=== PATIENT | male | born 1970 | race Caucasian/White ===

== ENCOUNTER 2017-05-16 09:15 | Emergency (ER) | payer OTHER ==
[2017-05-16 09:32] VITALS: BP 130/84
--- NOTE | 2017-05-16 10:20 | UC ---
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--- - History of Current Complaint Chief Complaint: [facility]CS[facility] Time Seen by Provider: 05/16/17 10:14 Stated Complaint: RASH Hx Obtained From: Patient Onset/Duration: Gradual Onset, Lasting Days, Still Present Timing: Constant Onset Severity: Moderate Current Severity: Moderate Location: Diffuse - as described Character: Pruritus, Redness Aggravating: Nothing Alleviating: Nothing Associated Signs & Symptoms: Positive: Rash - Allergy/Home Medications Allergies/Adverse Reactions: Allergies Allergy/AdvReac Type Severity Reaction Status Date / Time Penicillins Allergy Rash Verified 05/16/17 09:26 Review of Systems Constitutional: Negative Skin: Rash - itchy red no relief with cortisone Eyes: Negative ENT: Negative Respiratory: Negative Cardiovascular: Negative Gastrointestinal: Negative Genitourinary: Negative Motor: Negative Neurovascular: Negative Musculoskeletal: Negative Neurological: Negative Psychological: Negative All Other Systems Reviewed And Are Negative: Yes PMH/Surg Hx/FS Hx/Imm Hx Previously Healthy: No Endocrine History: Diabetes, Dyslipidemia Psychological History: Depression - Surgical History Surgical History: None - Family History Known Family History: Positive: None, Cardiac Disease - [place], Hypertension, Diabetes - Social History Occupation: Employed Full-time Lives: With Family Alcohol Use: Rare Substance Use Type: None Smoking Status (MU): Former Smoker Type: Cigarettes Length of Time of Smoking/Using Tobacco: "few years" Physical Exam Triage Information Reviewed: Yes Appearance: Well-Appearing, No Pain Distress, Well-Nourished Vital Signs: Initial Vital Signs Temp 97.3 F 05/16/17 09:27 Pulse 97 05/16/17 09:27 Resp 16 05/16/17 09:27 BP 130/84 05/16/17 09:27 Pulse Ox 99 05/16/17 09:27 Vital Signs Reviewed: Yes Eye Exam: Normal Eyes: Positive: Conjunctiva Clear ENT Exam: Normal ENT: Positive: Normal ENT inspection, Hearing grossly normal, Pharynx normal. Negative: Nasal congestion, Nasal drainage, TMs normal, Trismus, Muffled/hoarse voice Dental Exam: Normal Neck exam: Normal Neck: Positive: Supple, Nontender Respiratory Exam: Normal Respiratory: Positive: Chest non-tender, No respiratory distress, No accessory muscle use Cardiovascular Exam: Normal Cardiovascular: Positive: RRR, Pulses Normal, Brisk Capillary Refill Musculoskeletal Exam: Normal Musculoskeletal: Positive: Strength Intact, ROM Intact, No Edema Neurological Exam: Normal Neurological: Positive: Alert, Muscle Tone Normal Psychological Exam: Normal Skin Exam: Normal Skin: Positive: rashes Course/Dx - Course Course Of Treatment: benadryl for itching, cool water mild soap wash, prednisone follow with pcp - Differential Diagnoses - Skin Complaint Differential Diagnoses: Cellulitis, Contact Dermatitis, Other - exzema - Diagnoses Provider Diagnoses: Contact dermititis Discharge - Discharge Plan Condition: Stable Disposition: HOME Prescriptions: predniSONE TAB* [Deltasone TAB*] 10 mg PO DAILY #36 tab Patient Education Materials: Prednisone (By mouth), Diphenhydramine (By mouth) , Contact Dermatitis (ED) Forms: *Work Release Referrals: Amado Corral MD [Primary Care Provider] - 2 Weeks
== END 2017-05-16 10:35 | disposition home or self-care (01) ==
LOC: UCEAST 09:15
DX: L25.9 Unspecified contact dermatitis, unspecified cause (principal)
CPT/HCPCS: 99212; G0463

== ENCOUNTER 2018-12-05 10:30 | Emergency (ER) | payer SELFPAY ==
--- NOTE | 2018-12-05 10:36 | UC ---
Head Injury HPI - HPI Summary HPI Summary: 48 yo male presents s/p head injury. He tells me that yesterday he was at work at the [employer] and was helping a client to the bathroom. The client had a "spasm" and flung her head making contact with pt's left yazdanism. He had no LOC and continued working. Had a mild headache and some dizziness for a few minutes , but improved. Later, he took ibuprofen and iced the area with good relief. Noticed a bump at the area in the middle of the night and this morning. He tells me that his work is requesting he be "checked out" prompting his visit to . Currently he says he has a mild headaches, but feels well otherwise. Denies dizziness, vision changes, weakness, numbness, n/v. - History Of Current Complaint Stated Complaint: HEAD INJURY Time Seen by Provider: 12/05/18 10:36 Hx Obtained From: Patient Onset/Duration: Sudden Onset Severity Currently: Mild Severity Initially: Moderate Pain Intensity: 4 Pain Scale Used: 0-10 Numeric - Allergies/Home Medications Allergies/Adverse Reactions: Allergies Allergy/AdvReac Type Severity Reaction Status Date / Time Penicillins Allergy Rash Verified 12/05/18 10:44 Home Medications: Home Medications Ibuprofen 200 mg PO ONCE PRN 12/05/18 [History Confirmed 12/05/18] PMH/Surg Hx/FS Hx/Imm Hx Endocrine History: Dyslipidemia Cardiovascular History: Hypertension - Surgical History Surgical History: None - Family History Known Family History: Positive: Cardiac Disease - [place], Hypertension, Diabetes - Social History Occupation: Employed Full-time Lives: With Family Alcohol Use: Rare Substance Use Type: None Smoking Status (MU): Former Smoker Type: Cigarettes Length of Time of Smoking/Using Tobacco: "few years" Review of Systems All Other Systems Reviewed And Are Negative: Yes Constitutional: Positive: Negative Skin: Positive: Negative Eyes: Positive: Negative Respiratory: Positive: Negative Cardiovascular: Positive: Negative Gastrointestinal: Positive: Negative Neurovascular: Positive: Negative Musculoskeletal: Positive: Negative Neurological: Positive: Headache Psychological: Positive: Negative Physical Exam - Summary Physical Exam Summary: GENERAL: NAD. WDWN. No pain distress. SKIN: No rashes, sores, ulcers, masses, lesions. HEENT: Head: AT/NC. No raccoon eyes or battles sign. No hematoma. Eyes: PERRLA. EOM intact. NECK: Supple. Nontender. FROM. CHEST: CTAB. No r/r/w. No accessory muscle use. Breathing comfortably and in no distress. CV: RRR. Without m/r/g. Pulses intact. Brisk cap refill. MSK: FROM in B/L UEs and LEs with symmetric strength. NEURO: A&Ox3. 3 word recall, remote, recent memory, ability to follow 2-step directions, and attention intact. CN: II: Peripheral wong intact. Vision normal. III, IV, : EOMI. No nystagmus. PERRLA. V: Sensations intact and symmetric. Opens mouth and clenches teeth. VII: No facial asymmetry. Forehead wrinkles. Grins, shuts eyes, frowns, puffs cheeks. VIII: Hearing intact to finger rub. IX, X: Swallows and coughs. Uvula midline. XI: Shrugs shoulders. Turns head against resistance. XII: No tongue deviation [id number] are intact. Gait with normal base. Romberg: maintains balance, no pronator drift. Normal speech. No facial drooping. PSYCH: Age appropriate behavior. Triage Information Reviewed: Yes Vital Signs: Vital Signs: Temp Pulse Resp BP Pulse Ox 96.8 F 86 18 130/93 98 12/05/18 10:37 12/05/18 10:37 12/05/18 10:37 12/05/18 10:37 12/05/18 10:37 Vital Signs Reviewed: Yes Head Injury Course/Dx - Course Course Of Treatment: Discussed normal exam s/p low impact injury with improvement of symptoms and no other risk factors. No CT recommended. Pt in agreement with this. Advised to continue icing the area and taking ibuprofen for his discomfort. F/u with PCP or Dr. Olson of [facility] if his symptoms worsen while at work. If he develops severe headache, vision changes, dizziness, or n/ v to go to the ED. Pt voiced understanding. - Differential Dx/Diagnosis Provider Diagnosis: Head injury Discharge - Sign-Out/Discharge Documenting (check all that apply): Patient Departure All imaging exams completed and their final reports reviewed: No Studies - Discharge Plan Condition: Stable Disposition: HOME Patient Education Materials: Head Injury (ED) Forms: *Work Release Referrals: Amado Corral MD [Primary Care Provider] - Additional Instructions: If you develop a fever, shortness of breath, chest pain, new or worsening symptoms - please call your PCP or go to the ED. Your blood pressure was mildly elevated at todays visit. Please see your primary provider within 4 weeks for recheck and re-evaluation. 1) Continue taking ibuprofen and applying ice to the area to decrease pain and swelling 2) If you develop vomiting, severe headache, dizziness, or vision changes - please go to the ER or call 911 - Billing Disposition and Condition Condition: STABLE Disposition: Home
[2018-12-05 10:43] VITALS: BP 130/93
== END 2018-12-05 11:00 | disposition home or self-care (01) ==
LOC: UCEAST 10:30
DX: S09.90XA Unspecified injury of head, initial encounter (principal); I10 Essential (primary) hypertension; Z88.0 Allergy status to penicillin; Z87.891 Personal history of nicotine dependence; X58.XXXA Exposure to other specified factors, initial encounter; Y92.9 Unspecified place or not applicable; Y99.0 Civilian activity done for income or pay
CPT/HCPCS: 99211; G0463

== ENCOUNTER 2019-08-14 16:24 | Emergency (ER) | payer SELFPAY ==
--- OUTSIDE RECORDS SUMMARY | 2019-08-14 16:31 | XMS REPORT | Summary of Care ---
:1970 Author Organization [facility] Address [address] [facility] [place] [address] Care Team Providers Name Role Phone Amado Corral MD Primary Care Provider Suzanne Wolff RN Unavailable Reason for Visit Reason Comments Follow Up pt presents for follow up from diabetes Cough pt presents for cold s/s. cough, phlem, runny nose, emesis today and last evening, very achey. Started about a week ago. Encounter Details Date Type Department Care Team Description 07/09/2019 Office Visit [facility] Amado Corral MD Type 2 diabetes mellitus with microalbuminuria, with long-term current use of insulin ([facility]) (Primary Dx); Practice [address] [facility] Acute URI [address] [place], [place] [id number] [place] [address] [phone] Allergies Active Allergy Reactions Severity Noted Date Comments Penicillins INSURANCE VERIFICATION CLERK Reaction 07/05/2017 documented as of this encounter (statuses as of 07/09/2019) Medications Medication Sig Dispensed Refills Start Date End Date Status Aspirin 81 MG Take 1 Tab by 0 0 05/26/2009 Active Oral Tab mouth DAILY. Blood Glucose by Does not 1 0 05/26/2009 Active Meter Does not apply route. apply 1. KitIndications: Brand:accuheck Type II or 2. Dx:250.02 unspecified type 3. non-Insulin diabetes mellitus dependent 4. without mention Test Blood of complication, Glucose 2 uncontrolled time(s) A DAY Glucose Blood In 1 Strip by In 300 Each 3 11/04/2017 Active Vitro Strip Vitro route TWICE DAILY. E11.9 Acucheck Brand Last OV 07/05/17 Blood Glucose 1 Each by Does 200 Kit 5 11/27/2017 Active Monitoring Suppl not apply (D-CARE route TWICE GLUCOMETER) DAILY. Dx: w/Device Does not E11.9; Test apply Kit BID, Brand: Freestyle Lancets Does not 1 Each by Does 200 Each 5 11/27/2017 Active apply Misc not apply route TWICE DAILY. Brand:Freestyl e Dx:E11.9 Test Blood Glucose BID time(s) A DAY atorvastatin Take 1 Tab by 30 Tab 5 07/09/2019 Active (LIPITOR) 80 MG mouth DAILY. Oral Tab Glyburide-Metform Take 2 Tabs by 120 Tab 3 07/09/2019 Active in 5-500 MG Oral mouth TWICE Tab DAILY. lisinopril Take 2 Tabs by 60 Tab 5 07/09/2019 Active (PRINIVIL, mouth DAILY. ZESTRIL) 5 MG Oral Tab Insulin NPH, Inject 20 10 mL 2 07/09/2019 Active Human,, Isophane, Units beneath 100 UNIT/ML the skin EVERY Subcutaneous BEDTIME. Suspension Pen-injector Insulin 1 Each by Does 100 Each 0 07/09/2019 Active Syringe-Needle not apply U-100 30G X 3/16" route DAILY. 0.5 ML Does not apply Misc Insulin Pen 1 Device by 100 Each 0 07/11/2018 Discontinued Needle (PENTIPS) Does not apply 9 31G X 8 MM Does route DAILY. not apply Misc E11.65 Last OV 07/06/18 Insulin Glargine Inject 30 5 Device 2 09/28/2018 Discontinued (BASAGLAR Units beneath 9 KWIKPEN) 100 the skin UNIT/ML DAILY. Subcutaneous Solution Pen-injector lisinopril Take 2 Tabs by 60 Tab 0 02/08/2019 Discontinued (PRINIVIL, mouth DAILY. 9 (Reorder) ZESTRIL) 5 MG Oral TabIndications: Essential hypertension Glyburide-Metform Take 2 Tabs by 120 Tab 3 03/14/2019 Discontinued in 5-500 MG Oral mouth TWICE 9 (Reorder) Tab DAILY. atorvastatin TAKE ONE 30 Tab 1 05/15/2019 Discontinued (LIPITOR) 80 MG TABLET BY 9 Oral Tab MOUTH ONCE DAILY atorvastatin TAKE ONE 30 Tab 1 06/15/2019 Discontinued (LIPITOR) 80 MG TABLET BY 9 (Reorder) Oral Tab MOUTH EVERY DAY documented as of this encounter (statuses as of 07/09/2019) Active Problems Problem Noted Date Recurrent major depressive disorder, in remission 07/09/2019 Type 2 diabetes mellitus with microalbuminuria, with long-term current use of insulin Family history of heart disease 04/01/2016 Depression 04/01/2016 Severe obesity 10/03/2009 Overview: 07/28/2009, BMI: 36.22. CARLOS ALBERTO (obstructive sleep apnea) 10/03/2009 Overview: On CPAP. Diabetes mellitus without complication 05/26/2009 Dyslipidemia 05/26/2009 Essential hypertension documented as of this encounter (statuses as of 07/09/2019) Immunizations Name Administration Dates Next Due Influenza (IM) Preservative Free 09/28/2018, 07/05/2017, 06/12/2016 PNEUMOCOCCAL POLYSACCHARIDE VACCINE 07/05/2017 documented as of this encounter Social History Tobacco Use Types Packs/Day Years Used Date Former Smoker Cigarettes Quit: 01/31/2016 Smokeless Tobacco: Never Used Comments: 3-4 cigarettes/day Alcohol Use Drinks/Week oz/Week Comments Yes rare Physical Activity Answer Date Recorded On average, how many days per week do you engage in moderate to 1 day 2017 strenuous exercise (like walking fast, running, jogging, dancing, swimming, biking, or other activities that cause a light or heavy sweat)? On average, how many minutes do you engage in exercise at this 30 min 2017 level? Stress Answer Date Recorded Do you feel stress - tense, restless, nervous, or anxious, Not at all 2017 or unable to sleep at night because your mind is troubled all the time - these days? Financial Resource Strain Answer Date Recorded How hard is it for you to pay for the very basics like food, Hard 09/28/2018 housing, medical care, and heating? Transportation Needs Answer Date Recorded In the past 12 months, has lack of transportation kept you from Yes 2017 medical appointments or from getting medications? In the past 12 months, has lack of transportation kept you from No 09/28/2018 meetings, work, or getting things needed for daily living? Sex Assigned at Date Recorded Not on file Job Start Date Occupation Industry Not on file Not on file Not on file Travel History Travel Start Travel End No recent travel history available. documented as of this encounter Last Filed Vital Signs Vital Sign Reading Time Taken Comments Blood Pressure 128/80 07/09/2019 10:06 AM EDT Pulse 99 07/09/2019 10:06 AM EDT Temperature 36.4 07/09/2019 10:06 AM C (97.5 EDT F) Respiratory Rate - - Oxygen Saturation 98% 07/09/2019 10:06 AM EDT Inhaled Oxygen Concentration - - Weight 89.3 kg (196 lb 12.8 oz) 07/09/2019 10:06 AM EDT Height 175.3 cm (5' 9") 07/09/2019 10:06 AM EDT Body Mass Index 29.06 07/09/2019 10:06 AM EDT documented in this encounter Progress Notes Amado Corral MD - 07/09/2019 10:20 AM EDT PATIENT: Keaton Zacarias : 1970 DATE OF SERVICE: 07/09/2019 CHIEF COMPLAINT: Chief Complaint Patient presents with Follow Up pt presents for follow up from diabetes Cough pt presents for cold s/s. cough, phlem, runny nose, emesis today and last evening, very achey. Started about a week ago. Subjective HISTORY OF PRESENT ILLNESS: Keaton Zacarias is a 48-y.o. male. in for follow up of diabetes mellitus. He is/ checking their sugars 1 times a day. They average 220 fasting When he sticks to diet and exercise 160 Last eye check overdue Denies foot complaints Denies headache, vision problems, chest pain, shortness of breath, focal neurological synptoms or edema. He tells me today not using lantus because too $$ I thought he was just forgetting He ran out of the lisinopril Said he called for refill but last time was January 15 week of URI symptoms . Began with vomit and diarrhea. Followed by head congestion. Yellow d/c + FERRO Has felt feverish. + cough. No often sick. They would not let him off work Past Medical History: Diagnosis Date Depression Diabetes mellitus Lipidoses CARLOS ALBERTO (obstructive sleep apnea) 10/03/2009 On CPAP. Severe obesity (HCC) 10/03/2009 07/28/2009, BMI: 36.22. Unspecified essential hypertension Family History Problem Relation Age of Onset Heart Mother 56 Heart Father 46 sudden Heart Sister stents Heart Brother 46 Current Outpatient Medications Medication Sig Aspirin 81 MG Oral Tab Take 1 Tab by mouth DAILY. atorvastatin (LIPITOR) 80 MG Oral Tab TAKE ONE TABLET BY MOUTH EVERY DAY Blood Glucose Meter Does not apply Kit by Does not apply route. 1. Brand: accuheck 2. Dx:250.02 3. non-Insulin dependent 4. Test Blood Glucose 2 time(s) A DAY Blood Glucose Monitoring Suppl (D-CARE GLUCOMETER) w/Device Does not apply Kit 1 Each by Doesnot apply route TWICE DAILY. Dx: E11.9; Test BID, Brand : Freestyle Glucose Blood In Vitro Strip 1 Strip by In Vitro route TWICE DAILY. E11.9 Acucheck Brand LastOV 07/05/17 Glyburide-Metformin 5-500 MG Oral Tab Take 2 Tabs by mouth TWICE DAILY. Insulin Pen Needle (PENTIPS) 31G X 8 MM Does not apply Misc 1 Device by Does not apply route DAILY. E11.65 Last OV 07/06/18 Lancets Does not apply Misc 1 Each by Does not apply route TWICE DAILY. Brand:Freestyle Dx:E11.9 Test Blood Glucose BID time(s) A DAY lisinopril (PRINIVIL, ZESTRIL) 5 MG Oral Tab Take 2 Tabs by mouth DAILY. No current facility-administered medications for this visit. Allergies Allergen Reactions Penicillins INSURANCE VERIFICATION CLERK Reaction Social History Socioeconomic History Marital status: Single Spouse name: Not on file Number of children: Not on file Years of education: Not on file Highest education level: Not on file Occupational History Not on file Social Needs Financial resource strain: Hard Food insecurity: Worry: Patient refused Inability: Patient refused Transportation needs: Medical: Yes Non-medical: No Tobacco Use Smoking status: Former Smoker Types: Cigarettes Last attempt to quit: 01/31/2016 Years since quittin.4 Smokeless tobacco: Never Used Tobacco comment: 3-4 cigarettes/day Substance and Sexual Activity Alcohol use: Yes Comment: rare Drug use: No Sexual activity: Not Currently Lifestyle Physical activity: Days per week: 1 day Minutes per session: 30 min Stress: Not at all Relationships Social connections: Talks on phone: Not on file Gets together: Not on file Attends sabianist service: Not on file Active member of club or organization: Not on file Attends meetings of clubs or organizations: Not on file Relationship status: Not on file Intimate partner violence: Fear of current or ex partner: Not on file Emotionally abused: Not on file Physically abused: Not on file Forced sexual activity: Not on file Other Topics Concern Back Care Not Asked Bike Helmet Not Asked Blood Transfusions Not Asked Caffeine Concern Yes Comment: occasional coffee and 1 soda/day Exercise Not Asked Hobby Hazards Not Asked International Travel Not Asked Service Not Asked Occupational Exposure Not Asked Seat Belt Not Asked Self-Exams Not Asked Sleep Concern Not Asked Special Diet Not Asked Stress Concern Not Asked Weight Concern Not Asked Social History Narrative [facility] REVIEW OF SYSTEMS: ROS Objective PHYSICAL EXAM: VITALS: BP 128/80 (BP Location: Left arm, Patient Position: Sitting) | Pulse 99 | Temp 97.5 F(36.4 C) | Ht 5' 9" (1.753 m) | Wt 196 lb 12.8 oz ( 89.3 kg) | SpO2 98% | BMI 29.06 kg/mBody mass index is 29.06 kg/m. Physical Exam Constitutional: No distress. Sweaty HENT: Mouth/Throat: Oropharynx is clear and moist. Ears not infected but retracted Neck: Neck supple. Cardiovascular: Normal rate and regular rhythm. Pulmonary/Chest: Effort normal and breath sounds normal. No respiratory distress. Musculoskeletal: He exhibits no edema. Lymphadenopathy: He has no cervical adenopathy. Neurological: Hair growth on toes viration normal + onychomycosis Vitals reviewed. ASSESSMENT / IMPRESSION: ICD-9-CM ICD-10-CM 1. Type 2 diabetes mellitus with microalbuminuria, with long-term current use of insulin (HCC) poor control, non adherence , I found out today he not taking insulin due to $ so will try the cheaper NPH20 units and recheck labs in 3 months 250.40 E11.29 791.0 R80.9 V58.67 Z79.4 2. Acute URI think it is viral but giving a note for work No antibiotics today Call if not gettingbetter 465.9 J06.9 Plan Author: Amado Corral MD 07/09/2019 10:15 documented in this encounter Plan of Treatment Date Type Specialty Care Team Description 10/18/2019 Lab Internal Medicine Name Type Priority Associated Diagnoses Order Schedule LIPID PROFILE Lab Routine Type 2 diabetes mellitus Expected: 07/09/2019 with microalbuminuria, (Approximate), with long-term current Expires: 07/09/2020 use of insulin (HCC) MICROALBUMIN, RANDOM Lab Routine Type 2 diabetes mellitus Expected: 2018 URINE W/ CREATININE with microalbuminuria, (Approximate), with long-term current Expires: 01/05/2020 use of insulin (HCC) Health Maintenance Due Date Last Done Comments Diabetic Eye Exam 11/17/2017 11/17/2016 HEMOGLOBIN A1C 06/08/2019 03/08/2019, 07/06/2018, 01/25/2018, Additional history exists INFLUENZA VACCINE (#1) 2019 09/28/2018, 07/05/2017, 06/12/2016 DEPRESSION SCREENING 09/28/2019 09/28/2018, 07/05/2017 FOOT EXAM 09/28/2019 09/28/2018, 09/28/2018, 07/05/2017, Additional history exists LIPID DISORDER SCREENING 07/09/2020 07/09/2019, 03/08/2019, 01/25/2018, Additional history exists PNEUMOCOCCAL 0-64 YRS Completed 07/05/2017 HPV IMMUNIZATION SERIES Aged Out No longer eligible based on patient's age to complete this topic MENINGOCOCCAL VACCINE IMM Aged Out No longer eligible based on patient's age to complete this topic documented as of this encounter Goals Goal Patient Goal Associated Recent Patient-Stated? Author Type Problems Progress Blood Pressure Blood Pressure 128/80 No Mariella, < 140/90 (07/09/2019 Suzanne, 10:06 AM EDT) RN Note: This is an individualized treatment (blood pressure) goal for Keaton Zacarias: Displayed above (on the left) is your goal for blood pressure control. Your most recent blood pressure is also shown above, on the right. You should try to achieve blood pressures that are lower than your goal listed above (on the left). Depression screen Depression 5 (07/05/2017 9:44 AM Suzanne Hanna RN (PHQ-9) total score < 5 EDT) Note: This is an individualized treatment (depression) goal for Keaton Zacarias: Displayed above is your goal for a depression screening (PHQ-9) score that would indicate good control of your depression. Glycohemoglobin A1c < 7.0 Diabetes 10.7 (03/08/2019 8:46 No Soha Wolff RN AM EDT) Note: This is an individualized treatment (diabetes control, HgbA1C) goal for Keaton Zacarias: Displayed above is your progress towards your HgbA1C goal. Your goal is shown above (on the left); your most recent HgbA1C is shown on the right. Note that lower numbers are better. Weight loss vs. 18 mo Lifestyle 19.6 (07/09/2019 10:06 AM No Soha Wolff RN max (lbs) >= 10 EDT) Note: This is an individualized lifestyle goal for Keaton Zacarias: Your body mass index (BMI) is more than 30. You should lose weight. A reasonable starting goal is to lose 10 pounds. Displayed above is how many pounds you have lost thus far towards your 10 pound weight loss goal. Keep a regular sleep schedule Lifestyle No Suzanne Wolff RN Note: This is an individualized lifestyle goal for Keaton Zacarias: Please maintain a regular sleep schedule. This may help with some symptoms of depression. Keep immunizations current Lifestyle No Suzanne Wolff RN Note: This is an individualized lifestyle goal for Keaton Zacarias: Please be sure to keep up-to-date on recommended immunizations. For example, this would include a yearly influenza vaccine. Immunization status can be seen by looking at the Health Maintenance sections of your [facility], Plan of Care, and any After Visit Summaries. Take all prescribed medications as Self-management No Suzanne Wolff RN directed Note: This is an individualized self-management goal for Keaton Zacarias: Please take all prescribed medications as directed. 1. Do not skip doses. If you cannot afford your medications, talk with your doctor. 2. Use a pill reminder system such as a pill box if needed. Your pharmacist can help you with this. 3. Contact your Pharmacy 5 days before your medication runs out. If you cannot take your medications for any reasons, talk with your doctor. 4. Please bring all of your medication bottles and inhalers (or a list of all your medications/inhalers) with you to every visit. Potential barriers to meeting all of your care plan goals will continue to be addressed on an ongoing basis. documented as of this encounter Procedures Procedure Name Priority Date/Time Associated Diagnosis Comments DIABETES FOOT EXAM Routine 07/09/2019 documented in this encounter Results DIABETES FOOT EXAM (07/09/2019) FOOT EXAM normal [facility] Performing Organization Address City/State[facility] [address] [place] [address] documented in this encounter Visit Diagnoses Diagnosis Type 2 diabetes mellitus with microalbuminuria, with long-term current use of insulin (HCC) - Primary Acute URI Acute upper respiratory infections of unspecified site documented in this encounter Insurance Payer Benefit Plan / Subscriber ID Effective Dates Phone Address Type Group [employer] xxxxxxxxxxxx 2018-Present [place] JAMES PPO (Home) [place], [place] [phone] (Work) documented as of this encounter
[2019-08-14 17:43] VITALS: BP 96/67
--- NOTE | 2019-08-14 18:50 | UC ---
Lower Extremity/Ankle HPI - HPI Summary HPI Summary: FELL AT WORK TODAY AND STRUCK LEFT KNEE/COLLADO. NO SWELLING OR BRUISING. HAS DISCOMFORT MOSTLY IN HIS COLLADO WHEN HE WALKS. - History of Current Complaint Chief Complaint: UCLowerExtremity Stated Complaint: LEG INJURY Time Seen by Provider: 08/14/19 18:24 Hx Obtained From: Patient Onset/Duration: Sudden Onset, Lasting Hours, Still Present Severity Initially: Moderate Severity Currently: Moderate Pain Intensity: 7 Pain Scale Used: 0-10 Numeric Aggravating Factor(s): Standing, Ambulation Alleviating Factor(s): Rest, Elevation Able to Bear Weight: Yes - Allergies/Home Medications Allergies/Adverse Reactions: Allergies Allergy/AdvReac Type Severity Reaction Status Date / Time Penicillins Allergy Rash Verified 08/14/19 17:43 PMH/Surg Hx/FS Hx/Imm Hx Endocrine History: Diabetes Cardiovascular History: Cardiac Disease - Surgical History Surgical History: None - Family History Known Family History: Positive: Cardiac Disease - [place], Hypertension, Diabetes - Social History Alcohol Use: Rare Substance Use Type: None Smoking Status (MU): Former Smoker Type: Cigarettes Length of Time of Smoking/Using Tobacco: years ago Review of Systems All Other Systems Reviewed And Are Negative: Yes Constitutional: Positive: Negative Skin: Positive: Negative Respiratory: Positive: Negative Cardiovascular: Positive: Negative Gastrointestinal: Positive: Negative Musculoskeletal: Positive: Other: - LEFT COLLADO PAIN. Negative: Arthralgia, Decreased ROM, Edema Physical Exam Triage Information Reviewed: Yes Appearance: Well-Appearing, No Pain Distress, Well-Nourished Vital Signs: Initial Vital Signs Temp 98 F 08/14/19 17:37 Pulse 90 08/14/19 17:37 Resp 16 08/14/19 17:37 BP 96/67 08/14/19 17:37 Pulse Ox 99 08/14/19 17:37 Vital Signs Reviewed: Yes Eyes: Positive: Conjunctiva Clear ENT: Positive: Hearing grossly normal Neck: Positive: Supple Respiratory: Positive: No respiratory distress, No accessory muscle use Cardiovascular: Positive: Pulses Normal Abdomen Description: Positive: Soft Musculoskeletal: Positive: ROM Intact, No Edema, Other: - LEFT KNEE: NO JOINT LINE TENDERNESS OR TENDERNESS OVER ANY BONY PROMINENCES. MCL AND LCL INTACT TO STRESS TESTING. NEG LACHMANS. NEG DRAWERS SIGNS. NEG MCMURRAYS. NEG PATELLAR APPREHENSION TEST. NO TENDERNESS OVER PATELLAR LIGAMENT OR QUADRICEPS TENDON. MILDLY TENDER DIFFUSELY OVER COLLADO Neurological: Positive: Alert Psychological: Positive: Age Appropriate Behavior Skin: Positive: Other - VARICOSE VEINS. Negative: Rashes Lower Extremity Course/Dx - Course Course Of Treatment: NORMAL KNEE EXAM TODAY. PATIENT'S DISCOMFORT IS IN HIS ANTERIOR COLLADO. NO FOCAL BONY TENDERNESS. NO SWELLING OR BRUISING. NO INDICATION FOR X-RAYS TODAY. PATIENT AGREES WITH THIS ASSESSMENT. REQUESTING A WORK NOTE. WORK NOTE PROVIDED. PATIENT WILL FOLLOW-UP WITH PCP IF SYMPTOMS DO NOT IMPROVE WITH REST, ELEVATION AND IBUPROFEN. - Differential Dx/Diagnosis Provider Diagnosis: Contusion of left lower leg Discharge ED - Sign-Out/Discharge Documenting (check all that apply): Patient Departure All imaging exams completed and their final reports reviewed: No Studies - Discharge Plan Condition: Stable Disposition: HOME Patient Education Materials: Contusion in Adults (ED) Forms: *Work Release Referrals: Amado Corral MD [Primary Care Provider] - If Needed Additional Instructions: YOUR PRESENTATION IS CONSISTENT WITH A CONTUSION OF YOUR LEFT LOWER LEG. NO INDICATION FOR X-RAYS TODAY. YOUR SYMPTOMS SHOULD IMPROVE SIGNIFICANTLY OVER THE NEXT WEEK OR SO. IF YOU DO NOT IMPROVE EXPECTED FOLLOW-UP WITH YOUR PCP. YOU MAY BENEFIT FROM IMAGING AT THAT TIME. REST. ICE. ELEVATE. OTC IBUPROFEN OR ALEVE NEEDED FOR DISCOMFORT. - Billing Disposition and Condition Condition: STABLE Disposition: Home
== END 2019-08-14 18:47 | disposition home or self-care (01) ==
LOC: UCEAST 16:24
DX: S80.02XA Contusion of left knee, initial encounter (principal); E11.9 Type 2 diabetes mellitus without complications; Z88.0 Allergy status to penicillin; Z87.891 Personal history of nicotine dependence; W19.XXXA Unspecified fall, initial encounter; Y92.9 Unspecified place or not applicable
CPT/HCPCS: 99211; G0463

== ENCOUNTER 2021-03-30 12:49 | Inpatient (IN) ==
[2021-03-30] MEDS ORDERED: NS 0.9% 1000 ml BAG 1,000 ML IV ONE (13:30)
[2021-03-30] MEDS ORDERED: Cefepime 2 GM in Dextrose 2 GM/50 ML BAG IV ONE (13:33)
[2021-03-30] MEDS ORDERED: Vancomycin 1,500 MG in NS 0.9% 250 ml 250 ML IVPB ONE (13:33)
[2021-03-30] MEDS ORDERED: NS 0.9% 250 ml 250 ML ONE (14:25)
[2021-03-30 14:33] LABS: ABS Basophils 0.1 10^3/ul (0-0.2); ABS Eosinophils 0.1 10^3/ul (0-0.6); ABS Lymphocytes 1.7 10^3/ul (1.0-4.8); ABS Monocytes 1.3 10^3/ul (0-0.8); ABS Neutrophils 9.8 10^3/ul (1.5-7.7); Eosinophil % 0.4 %; Hematocrit 42 % (42-52); Hemoglobin 14.6 g/dL (14.0-18.0); Lymphocyte % 13.3 %; Mean Corpuscular HGB Conc 35 g/dL (31-36); Mean Corpuscular Hemoglobin 30 pg (27-31); Mean Corpuscular Volume 87 fL (80-94); Mean Platelet Volume 6.9 fL (7.4-10.4); Platelet Count 403 10^3/uL (150-450); Red Blood Count 4.82 10^6 /uL (4.18-5.48); Red Cell Distribution Width 13 % (10-15)
[2021-03-30 15:10] LABS: Albumin 3.9 g/dL (3.2-5.2); Albumin/Globulin Ratio 1.1 (1-3); C Reactive Protein 92.34 mg/L (<8.01); Calcium 9.3 mg/dL (8.6-10.3); EGFR African American 97.6 (>60); EGFR Non-African American 80.6 (>60); Globulin 3.6 g/dL (2-4); Potassium 4.5 mmol/L (3.5-5.0); Total Bilirubin 0.5 mg/dL (0.2-1.0); Total Protein 7.5 g/dL (6.4-8.9)
[2021-03-30] MEDS ORDERED: Vancomycin per Pharmacy 1 EA NOTE FOLLOW UP SCH (17:00)
[2021-03-30] MEDS ORDERED: Dextrose 50% Syringe 50 ml 25 GM/50 ML SYRINGE IV PUSH PRN (17:07)
[2021-03-30] MEDS: NS 0.9% 1000 ml BAG 1,000 ML IV SCH (20:25)
[2021-03-30] MEDS: metroNIDAZOLE IV 500 MG/100ML 500 MG/100 ML BAG IVPB SCH (20:25)
[2021-03-31] MEDS: Cefepime 2 GM in Dextrose 2 GM/50 ML BAG IV SCH ×2 (02:09→13:18)
[2021-03-31] MEDS: Vancomycin 1,250 MG in NS 0.9% 250 ml 250 ML IVPB SCH ×2 (02:57→14:09)
[2021-03-31 05:04] LABS: ABS Basophils 0.1 10^3/ul (0-0.2); ABS Eosinophils 0.1 10^3/ul (0-0.6); ABS Lymphocytes 2.5 10^3/ul (1.0-4.8); ABS Monocytes 1.5 10^3/ul (0-0.8); ABS Neutrophils 7.8 10^3/ul (1.5-7.7); Eosinophil % 0.9 %; Hematocrit 40 % (42-52); Hemoglobin 13.9 g/dL (14.0-18.0); Lymphocyte % 21.1 %; Mean Corpuscular HGB Conc 35 g/dL (31-36); Mean Corpuscular Hemoglobin 30 pg (27-31); Mean Corpuscular Volume 86 fL (80-94); Mean Platelet Volume 6.5 fL (7.4-10.4); Nucleated Red Blood Cells % 0.1; Platelet Count 371 10^3/uL (150-450); Red Blood Count 4.63 10^6 /uL (4.18-5.48); Red Cell Distribution Width 13 % (10-15)
[2021-03-31 05:13] LABS: INR 1.32 (0.82-1.09)
[2021-03-31 05:31] LABS: Calcium 8.9 mg/dL (8.6-10.3); EGFR Non-African American 127.2 (>60); Potassium 4.4 mmol/L (3.5-5.0)
[2021-03-31] MEDS: metroNIDAZOLE IV 500 MG/100ML 500 MG/100 ML BAG IVPB SCH ×2 (08:38→22:29)
[2021-03-31] MEDS: NS 0.9% 1000 ml BAG 1,000 ML IV SCH (12:14)
[2021-04-01] MEDS: Cefepime 2 GM in Dextrose 2 GM/50 ML BAG IV SCH ×2 (02:38→13:38)
[2021-04-01] MEDS: Vancomycin 1,250 MG in NS 0.9% 250 ml 250 ML IVPB SCH ×3 (03:25→15:21)
[2021-04-01] MEDS: NS 0.9% 1000 ml BAG 1,000 ML IV SCH ×2 (03:34→17:02)
[2021-04-01] MEDS: metroNIDAZOLE IV 500 MG/100ML 500 MG/100 ML BAG IVPB SCH (08:25)
[2021-04-01] MEDS ORDERED: Vancomycin Trough Check NOTE FOLLOW UP ONE (13:30)
[2021-04-01 14:56] LABS: EGFR African American 165.5 (>60); EGFR Non-African American 136.8 (>60); Vancomycin Trough 6.9 mcg/mL
[2021-04-01] MEDS ORDERED: Vancomycin 1000 MG in NS 0.9% 250 ML IVPB SCH (16:00)
[2021-04-01] MEDS: ceFAZolin 2 GM PREMIX 2 GM/50 ML BAG IVPB SCH (21:52)
[2021-04-02] MEDS: NS 0.9% 1000 ml BAG 1,000 ML IV SCH ×2 (03:53→18:48)
[2021-04-02] MEDS: ceFAZolin 2 GM PREMIX 2 GM/50 ML BAG IVPB SCH ×3 (06:18→21:44)
[2021-04-02] MEDS ORDERED: Lidocaine 1% VIAL 10 MG/ML VIAL ONE ×2 (14:33→14:38)
[2021-04-02] MEDS ORDERED: Iodixanol 320 (CONTRAST) 100 ML SDV ONE ×2 (14:33→14:38)
[2021-04-02] MEDS ORDERED: Heparin 2 UNITS/ML IVPREMIX 0 UNIT/0 ML BAG IV ONE (14:34)
[2021-04-02] MEDS ORDERED: Heparin 2 UNITS/ML IVPREMIX 3,000 UNIT/1,500 ML BAG IV ONE (14:38)
[2021-04-02] MEDS ORDERED: Midazolam 5 mg/5 ml VIAL 1 mg/ml 5 ml VIAL (5 mg) ONE (14:42)
[2021-04-02] MEDS ORDERED: Flumazenil 0.5 mg/5 ml 0.1 MG/ML 5 ml VIAL ONE (14:43)
[2021-04-02] MEDS ORDERED: fentaNYL 100 mcg/2 ml 50 MCG/ML VIAL ONE ×2 (14:43→16:15)
[2021-04-02] MEDS ORDERED: Naloxone 0.4 mg VIAL 0.4 mg/ml 1 ml VIAL ONE (14:43)
[2021-04-02] MEDS ORDERED: Heparin 1,000 UNIT/ML 10 ml (10,000 UNITS) CATHLAB/DIALYSIS ONE (15:49)
[2021-04-02] MEDS ORDERED: nitroGLYCERIN DRIP 25,000 MCG/250 ML BTL ONE (16:04)
[2021-04-03 05:23] LABS: ABS Basophils 0.1 10^3/ul (0-0.2); ABS Eosinophils 0.1 10^3/ul (0-0.6); ABS Lymphocytes 2.1 10^3/ul (1.0-4.8); ABS Monocytes 1.2 10^3/ul (0-0.8); ABS Neutrophils 8.1 10^3/ul (1.5-7.7); Hematocrit 40 % (42-52); Hemoglobin 14.1 g/dL (14.0-18.0); Lymphocyte % 18.3 %; Mean Corpuscular HGB Conc 36 g/dL (31-36); Mean Corpuscular Hemoglobin 31 pg (27-31); Mean Corpuscular Volume 86 fL (80-94); Mean Platelet Volume 6.5 fL (7.4-10.4); Platelet Count 364 10^3/uL (150-450); Red Blood Count 4.59 10^6 /uL (4.18-5.48); Red Cell Distribution Width 13 % (10-15); White Blood Count 11.6 10^3/uL (3.5-10.8)
[2021-04-03 05:29] LABS: INR 1.32 (0.82-1.09)
[2021-04-03 05:39] LABS: C Reactive Protein 51.77 mg/L (<8.01); EGFR African American 165.5 (>60); EGFR Non-African American 136.8 (>60); Potassium 4.3 mmol/L (3.5-5.0)
[2021-04-03] MEDS: ceFAZolin 2 GM PREMIX 2 GM/50 ML BAG IVPB SCH ×3 (05:47→23:09)
[2021-04-03] MEDS: NS 0.9% 1000 ml BAG 1,000 ML IV SCH ×2 (05:48→17:37)
[2021-04-03] MEDS ORDERED: Vancomycin Trough Check NOTE FOLLOW UP ONE (07:30)
[2021-04-03] MEDS ORDERED: ceFAZolin 2 GM PREMIX 2 GM/50 ML BAG ONE (12:48)
[2021-04-03] MEDS ORDERED: Propofol 10 MG/ML 20 ML BTL ONE ×3 (13:02→14:09)
[2021-04-03] MEDS ORDERED: Midazolam 2 mg/2 ml VIAL 1 mg/ml 2 ml VIAL (2 mg) ONE (13:02)
[2021-04-03] MEDS ORDERED: Lidocaine 2% PF 5 ML VIAL ONE (13:02)
[2021-04-03] MEDS ORDERED: Bupivacaine 0.5% SDV PF 30ML VIAL ONE (14:06)
[2021-04-03] MEDS ORDERED: Naloxone 0.4 mg VIAL 0.4 mg/ml 1 ml VIAL IV PRN (14:22)
[2021-04-03] MEDS ORDERED: fentaNYL 100 mcg/2 ml 50 MCG/ML VIAL ONE (16:00)
[2021-04-03] MEDS: fentaNYL 100 mcg/2 ml 50 MCG/ML VIAL IV PRN ×2 (16:01→16:08)
[2021-04-03] MEDS ORDERED: Morphine 2 MG/ML SYRINGE IV PRN (16:52)
[2021-04-03] MEDS ORDERED: metroNIDAZOLE IV 500 MG/100ML 500 MG/100 ML BAG IVPB SCH (17:30)
[2021-04-03] MEDS: metroNIDAZOLE IV 500 MG/100ML 500 MG/100 ML BAG IVPB SCH (21:45)
[2021-04-04] MEDS: NS 0.9% 1000 ml BAG 1,000 ML IV SCH (05:32)
[2021-04-04 05:55] LABS: ABS Basophils 0.1 10^3/ul (0-0.2); ABS Eosinophils 0.1 10^3/ul (0-0.6); ABS Lymphocytes 1.6 10^3/ul (1.0-4.8); ABS Monocytes 1.4 10^3/ul (0-0.8); Eosinophil % 0.8 %; Hematocrit 42 % (42-52); Hemoglobin 14.3 g/dL (14.0-18.0); Mean Corpuscular HGB Conc 34 g/dL (31-36); Mean Corpuscular Hemoglobin 30 pg (27-31); Mean Corpuscular Volume 86 fL (80-94); Mean Platelet Volume 6.1 fL (7.4-10.4); Platelet Count 387 10^3/uL (150-450); Red Blood Count 4.82 10^6 /uL (4.18-5.48); Red Cell Distribution Width 13 % (10-15); White Blood Count 14.2 10^3/uL (3.5-10.8)
[2021-04-04 06:09] LABS: C Reactive Protein 56.87 mg/L (<8.01); Calcium 8.4 mg/dL (8.6-10.3); EGFR African American 198.3 (>60); EGFR Non-African American 163.9 (>60)
[2021-04-04] MEDS: ceFAZolin 2 GM PREMIX 2 GM/50 ML BAG IVPB SCH ×3 (06:09→23:01)
[2021-04-04] MEDS ORDERED: Heparin 5000 UNITS/ML 1 mL VIAL IV SCH (09:00)
[2021-04-04] MEDS: metroNIDAZOLE IV 500 MG/100ML 500 MG/100 ML BAG IVPB SCH ×2 (09:13→21:39)
[2021-04-04] MEDS: Enoxaparin 40 MG/0.4 ML SYR SUBCUT SCH (11:17)
[2021-04-04] MEDS: Polyethylene Glycol 3350 17 GM PACKET PO PRN (17:26)
[2021-04-05] MEDS: ceFAZolin 2 GM PREMIX 2 GM/50 ML BAG IVPB SCH ×3 (06:39→22:35)
[2021-04-05 07:31] LABS: ABS Basophils 0.1 10^3/ul (0-0.2); ABS Eosinophils 0.2 10^3/ul (0-0.6); ABS Lymphocytes 1.9 10^3/ul (1.0-4.8); ABS Monocytes 1.4 10^3/ul (0-0.8); Eosinophil % 1.3 %; Hematocrit 39 % (42-52); Hemoglobin 13.7 g/dL (14.0-18.0); Mean Corpuscular HGB Conc 35 g/dL (31-36); Mean Corpuscular Hemoglobin 30 pg (27-31); Mean Corpuscular Volume 86 fL (80-94); Mean Platelet Volume 6.3 fL (7.4-10.4); Platelet Count 364 10^3/uL (150-450); Red Blood Count 4.54 10^6 /uL (4.18-5.48); Red Cell Distribution Width 12 % (10-15); White Blood Count 12.6 10^3/uL (3.5-10.8)
[2021-04-05 07:49] LABS: C Reactive Protein 104.36 mg/L (<8.01); Calcium 8.9 mg/dL (8.6-10.3); EGFR African American 156.7 (>60); EGFR Non-African American 129.5 (>60); Potassium 4.7 mmol/L (3.5-5.0)
[2021-04-05] MEDS: metroNIDAZOLE IV 500 MG/100ML 500 MG/100 ML BAG IVPB SCH ×2 (08:46→21:12)
[2021-04-05] MEDS: Enoxaparin 40 MG/0.4 ML SYR SUBCUT SCH (11:37)
[2021-04-06 05:48] LABS: ABS Basophils 0.1 10^3/ul (0-0.2); ABS Eosinophils 0.2 10^3/ul (0-0.6); ABS Lymphocytes 2.1 10^3/ul (1.0-4.8); ABS Monocytes 1.2 10^3/ul (0-0.8); ABS Neutrophils 6.9 10^3/ul (1.5-7.7); Hematocrit 42 % (42-52); Hemoglobin 14.6 g/dL (14.0-18.0); Lymphocyte % 20.1 %; Mean Corpuscular HGB Conc 35 g/dL (31-36); Mean Corpuscular Hemoglobin 30 pg (27-31); Mean Corpuscular Volume 86 fL (80-94); Mean Platelet Volume 6.5 fL (7.4-10.4); Platelet Count 383 10^3/uL (150-450); Red Blood Count 4.87 10^6 /uL (4.18-5.48); Red Cell Distribution Width 12 % (10-15); White Blood Count 10.5 10^3/uL (3.5-10.8)
[2021-04-06 06:04] LABS: C Reactive Protein 102.17 mg/L (<8.01); Calcium 9.4 mg/dL (8.6-10.3); EGFR African American 159.5 (>60); EGFR Non-African American 131.8 (>60); Potassium 4.5 mmol/L (3.5-5.0)
[2021-04-06] MEDS: ceFAZolin 2 GM PREMIX 2 GM/50 ML BAG IVPB SCH ×3 (06:10→22:15)
[2021-04-06] MEDS: metroNIDAZOLE IV 500 MG/100ML 500 MG/100 ML BAG IVPB SCH (09:20)
[2021-04-06] MEDS: Enoxaparin 40 MG/0.4 ML SYR SUBCUT SCH (12:23)
[2021-04-07] MEDS: ceFAZolin 2 GM PREMIX 2 GM/50 ML BAG IVPB SCH ×3 (06:14→22:01)
[2021-04-07] MEDS: Enoxaparin 40 MG/0.4 ML SYR SUBCUT SCH (10:47)
[2021-04-07] MEDS ORDERED: Insulin GLARGINE 100 un/ml 10 ml VIAL SUBCUT SCH (10:52)
[2021-04-07] MEDS ORDERED: Insulin GLARGINE 100 un/ml 10 ml VIAL SUBCUT ONE (21:00)
[2021-04-08] MEDS: ceFAZolin 2 GM PREMIX 2 GM/50 ML BAG IVPB SCH ×3 (05:49→22:39)
[2021-04-08] MEDS: Insulin GLARGINE 100 un/ml 10 ml VIAL SUBCUT SCH (09:43)
[2021-04-08] MEDS: Polyethylene Glycol 3350 17 GM PACKET PO PRN (09:51)
[2021-04-08] MEDS: Enoxaparin 40 MG/0.4 ML SYR SUBCUT SCH (10:04)
[2021-04-09] MEDS: ceFAZolin 2 GM PREMIX 2 GM/50 ML BAG IVPB SCH ×3 (06:30→21:44)
[2021-04-09] MEDS: Insulin GLARGINE 100 un/ml 10 ml VIAL SUBCUT SCH (09:00)
[2021-04-09] MEDS ORDERED: Insulin GLARGINE 100 un/ml 10 ml VIAL SUBCUT ONE (09:30)
[2021-04-09] MEDS: Enoxaparin 40 MG/0.4 ML SYR SUBCUT SCH (11:56)
[2021-04-09] MEDS: Senna TAB 8.6 mg TAB PO SCH (21:31)
[2021-04-10] MEDS: ceFAZolin 2 GM PREMIX 2 GM/50 ML BAG IVPB SCH ×3 (06:08→21:57)
[2021-04-10] MEDS: Insulin GLARGINE 100 un/ml 10 ml VIAL SUBCUT SCH (08:53)
[2021-04-10] MEDS: Enoxaparin 40 MG/0.4 ML SYR SUBCUT SCH (11:46)
[2021-04-10] MEDS: Senna TAB 8.6 mg TAB PO SCH (21:57)
[2021-04-11] MEDS: ceFAZolin 2 GM PREMIX 2 GM/50 ML BAG IVPB SCH ×3 (05:59→20:30)
[2021-04-11] MEDS ORDERED: Senna TAB 8.6 mg TAB PO PRN (06:40)
[2021-04-11] MEDS: Insulin GLARGINE 100 un/ml 10 ml VIAL SUBCUT SCH (09:18)
[2021-04-11] MEDS: Enoxaparin 40 MG/0.4 ML SYR SUBCUT SCH (12:45)
[2021-04-12] MEDS: ceFAZolin 2 GM PREMIX 2 GM/50 ML BAG IVPB SCH ×3 (05:35→20:18)
[2021-04-12] MEDS: Insulin GLARGINE 100 un/ml 10 ml VIAL SUBCUT SCH (09:10)
[2021-04-12] MEDS: Enoxaparin 40 MG/0.4 ML SYR SUBCUT SCH (12:12)
[2021-04-13] MEDS: ceFAZolin 2 GM PREMIX 2 GM/50 ML BAG IVPB SCH ×2 (05:07→14:23)
[2021-04-13] MEDS: Insulin GLARGINE 100 un/ml 10 ml VIAL SUBCUT SCH (09:00)
[2021-04-13 10:56] LABS: ABS Basophils 0.1 10^3/ul (0-0.2); ABS Eosinophils 0.2 10^3/ul (0-0.6); ABS Lymphocytes 2.7 10^3/ul (1.0-4.8); ABS Monocytes 1.1 10^3/ul (0-0.8); ABS Neutrophils 6.4 10^3/ul (1.5-7.7); Eosinophil % 1.9 %; Hematocrit 41 % (42-52); Hemoglobin 14.2 g/dL (14.0-18.0); Lymphocyte % 25.6 %; Mean Corpuscular HGB Conc 35 g/dL (31-36); Mean Corpuscular Hemoglobin 30 pg (27-31); Mean Corpuscular Volume 87 fL (80-94); Mean Platelet Volume 6.2 fL (7.4-10.4); Platelet Count 368 10^3/uL (150-450); Red Blood Count 4.73 10^6 /uL (4.18-5.48); Red Cell Distribution Width 13 % (10-15); White Blood Count 10.5 10^3/uL (3.5-10.8)
[2021-04-13 11:29] VITALS: BP 107/68
[2021-04-13 11:38] LABS: Albumin 3.5 g/dL (3.2-5.2); C Reactive Protein 9.96 mg/L (<8.01); Calcium 9.5 mg/dL (8.6-10.3); EGFR African American 148.8 (>60); EGFR Non-African American 122.9 (>60); Globulin 3.5 g/dL (2-4); Potassium 4.5 mmol/L (3.5-5.0); Total Bilirubin 0.4 mg/dL (0.2-1.0)
[2021-04-13] MEDS: Enoxaparin 40 MG/0.4 ML SYR SUBCUT SCH (12:14)
== END 2021-04-13 16:15 | disposition home health service (06) | DRG 710 ==
LOC: ED 12:49 → SSU 18:26
PROVIDERS: ADMIT Internal Medicine; ATTEND Internal Medicine

== ENCOUNTER 2021-06-05 12:25 | Inpatient (IN) ==
[2021-06-05] MEDS ORDERED: Ondansetron 4 mg VIAL 2 MG/ML 2 ml VIAL IV PRN (15:56)
[2021-06-05] MEDS ORDERED: Dextrose 50% Syringe 50 ml 25 GM/50 ML SYRINGE IV PUSH PRN ×2 (15:56)
[2021-06-05] MEDS ORDERED: Vancomycin 1,250 MG in NS 0.9% 250 ml 250 ML IVPB SCH (16:00)
[2021-06-05] MEDS ORDERED: Senna TAB 8.6 mg TAB PO PRN (16:05)
[2021-06-05] MEDS ORDERED: cefTRIAXone 2 GM ADDV.VIAL 2 GM in NS 0.9% 100 ml BAG 100 ML IV SCH (17:30)
[2021-06-05 17:54] LABS: EGFR African American 146.3 (>60); EGFR Non-African American 120.9 (>60)
[2021-06-05] MEDS ORDERED: Vancomycin 1,500 MG in NS 0.9% 250 ml 250 ML IVPB ONE (18:00)
[2021-06-05] MEDS: Enoxaparin 40 MG/0.4 ML SYR SUBCUT SCH (21:23)
[2021-06-05] MEDS ORDERED: Vancomycin per Pharmacy 1 EA NOTE FOLLOW UP PRN (22:32)
[2021-06-06] MEDS: Vancomycin 1,250 MG in NS 0.9% 250 ml 250 ML IVPB SCH ×3 (06:45→22:52)
[2021-06-06 06:46] LABS: ABS Basophils 0.1 10^3/ul (0-0.2); ABS Eosinophils 0.2 10^3/ul (0-0.6); ABS Lymphocytes 2.7 10^3/ul (1.0-4.8); ABS Monocytes 1.3 10^3/ul (0-0.8); ABS Neutrophils 10.1 10^3/ul (1.5-7.7); Eosinophil % 1.3 %; Hematocrit 33 % (42-52); Hemoglobin 11.1 g/dL (14.0-18.0); Mean Corpuscular HGB Conc 33 g/dL (31-36); Mean Corpuscular Hemoglobin 28 pg (27-31); Mean Corpuscular Volume 83 fL (80-94); Mean Platelet Volume 5.9 fL (7.4-10.4); Platelet Count 562 10^3/uL (150-450); Red Blood Count 4.02 10^6 /uL (4.18-5.48); Red Cell Distribution Width 13 % (10-15); White Blood Count 14.4 10^3/uL (3.5-10.8)
[2021-06-06 07:03] LABS: C Reactive Protein 144.88 mg/L (<8.01); Calcium 8.8 mg/dL (8.6-10.3); EGFR African American 178.7 (>60); EGFR Non-African American 147.7 (>60); Magnesium 1.3 mg/dL (1.9-2.7); Potassium 4.6 mmol/L (3.5-5.0)
[2021-06-06] MEDS: Insulin GLARGINE 100 un/ml 10 ml VIAL SUBCUT SCH (08:57)
[2021-06-06] MEDS ORDERED: Insulin GLARGINE 100 un/ml 10 ml VIAL SUBCUT SCH (09:00)
[2021-06-06 09:14] LABS: Erythrocyte Sed Rate 78 mm/Hr (0-19)
[2021-06-06] MEDS: cefTRIAXone 2 GM ADDV.VIAL 2 GM in NS 0.9% 100 ml BAG 100 ML IV SCH (21:59)
[2021-06-06] MEDS: Enoxaparin 40 MG/0.4 ML SYR SUBCUT SCH (22:00)
[2021-06-07] MEDS ORDERED: Vancomycin Trough Check NOTE FOLLOW UP ONE (06:00)
[2021-06-07 07:17] LABS: ABS Basophils 0.1 10^3/ul (0-0.2); ABS Eosinophils 0.2 10^3/ul (0-0.6); ABS Lymphocytes 2.2 10^3/ul (1.0-4.8); ABS Monocytes 1.2 10^3/ul (0-0.8); ABS Neutrophils 9.4 10^3/ul (1.5-7.7); Eosinophil % 1.7 %; Hematocrit 31 % (42-52); Hemoglobin 10.8 g/dL (14.0-18.0); Lymphocyte % 17.1 %; Mean Corpuscular HGB Conc 34 g/dL (31-36); Mean Corpuscular Hemoglobin 28 pg (27-31); Mean Corpuscular Volume 83 fL (80-94); Mean Platelet Volume 5.9 fL (7.4-10.4); Platelet Count 539 10^3/uL (150-450); Red Blood Count 3.79 10^6 /uL (4.18-5.48); Red Cell Distribution Width 14 % (10-15); White Blood Count 13.2 10^3/uL (3.5-10.8)
[2021-06-07 07:34] LABS: Calcium 8.5 mg/dL (8.6-10.3); EGFR African American 182.4 (>60); EGFR Non-African American 150.7 (>60); Magnesium 1.3 mg/dL (1.9-2.7); Potassium 4.3 mmol/L (3.5-5.0)
[2021-06-07 07:38] LABS: Vancomycin Trough 12.1 mcg/mL
[2021-06-07] MEDS: Vancomycin 1,250 MG in NS 0.9% 250 ml 250 ML IVPB SCH ×2 (08:02→14:18)
[2021-06-07] MEDS: Insulin GLARGINE 100 un/ml 10 ml VIAL SUBCUT SCH (08:12)
[2021-06-07] MEDS ORDERED: Magnesium Sulf 4 GM/100 ML IV 4,000 MG/100 ML BAG IVPB ONE (08:30)
[2021-06-07] MEDS: cefTRIAXone 2 GM ADDV.VIAL 2 GM in NS 0.9% 100 ml BAG 100 ML IV SCH (22:21)
[2021-06-07] MEDS: Enoxaparin 40 MG/0.4 ML SYR SUBCUT SCH (22:21)
[2021-06-08] MEDS: Vancomycin 1,250 MG in NS 0.9% 250 ml 250 ML IVPB SCH ×4 (00:52→21:35)
[2021-06-08 06:10] LABS: ABS Basophils 0.1 10^3/ul (0-0.2); ABS Eosinophils 0.2 10^3/ul (0-0.6); ABS Lymphocytes 2.9 10^3/ul (1.0-4.8); ABS Monocytes 1.2 10^3/ul (0-0.8); ABS Neutrophils 8.4 10^3/ul (1.5-7.7); Eosinophil % 1.7 %; Hematocrit 31 % (42-52); Hemoglobin 10.7 g/dL (14.0-18.0); Lymphocyte % 22.6 %; Mean Corpuscular HGB Conc 35 g/dL (31-36); Mean Corpuscular Hemoglobin 29 pg (27-31); Mean Corpuscular Volume 83 fL (80-94); Mean Platelet Volume 5.9 fL (7.4-10.4); Nucleated Red Blood Cells % 0.1; Platelet Count 539 10^3/uL (150-450); Red Cell Distribution Width 14 % (10-15); White Blood Count 12.8 10^3/uL (3.5-10.8)
[2021-06-08 06:35] LABS: Calcium 8.6 mg/dL (8.6-10.3); EGFR African American 198.3 (>60); EGFR Non-African American 163.9 (>60); Magnesium 1.5 mg/dL (1.9-2.7); Potassium 4.5 mmol/L (3.5-5.0)
[2021-06-08] MEDS ORDERED: Magnesium Sulfate IV 3 GM in NS 0.9% 100 ml BAG 100 ML IVPB ONE (08:02)
[2021-06-08] MEDS: Insulin GLARGINE 100 un/ml 10 ml VIAL SUBCUT SCH (08:15)
[2021-06-08] MEDS ORDERED: Acetaminophen IV 1 GM/100ML 100 ML IV ONE (09:06)
[2021-06-08] MEDS: CEFEPIME 2 GM in Dextrose 50 mL IV SCH (12:39)
[2021-06-08] MEDS ORDERED: Buffered Lidocaine 1% SYRIN 1 ml INTRADERM ONE (13:18)
[2021-06-08] MEDS ORDERED: Propofol 10 mg/ml 100 ML BTL 100 ML ONE (13:22)
[2021-06-08] MEDS ORDERED: fentaNYL 100 mcg/2 ml 50 MCG/ML VIAL ONE (13:23)
[2021-06-08] MEDS ORDERED: Midazolam 2 mg/2 ml VIAL 1 mg/ml 2 ml VIAL (2 mg) ONE (13:23)
[2021-06-08] MEDS ORDERED: Lactated Ringers 1000 ml BAG 1,000 ML IV SCH (14:00)
[2021-06-08] MEDS ORDERED: Naloxone 0.4 mg VIAL 0.4 mg/ml 1 ml VIAL IV PRN (15:14)
[2021-06-08] MEDS ORDERED: Ondansetron 4 mg VIAL 2 MG/ML 2 ml VIAL IV PRN (15:14)
[2021-06-08] MEDS ORDERED: hydrALAZINE 20 mg/ml 1 ML Vial IV IV SLOW PU PRN (18:05)
[2021-06-08] MEDS ORDERED: hydrALAZINE 20 mg/ml 1 ML Vial IV ONE (18:05)
[2021-06-08 19:46] LABS: C Reactive Protein 99.85 mg/L (<8.01)
[2021-06-08] MEDS: Morphine 2 MG/ML SYRINGE IV PRN (21:42)
[2021-06-09] MEDS: CEFEPIME 2 GM in Dextrose 50 mL IV SCH ×2 (00:32→12:40)
[2021-06-09] MEDS: Morphine 2 MG/ML SYRINGE IV PRN ×3 (03:19→19:19)
[2021-06-09] MEDS: Vancomycin 1,250 MG in NS 0.9% 250 ml 250 ML IVPB SCH ×3 (06:04→22:25)
[2021-06-09 07:35] LABS: Hematocrit 33 % (42-52); Hemoglobin 11.4 g/dL (14.0-18.0); Mean Corpuscular HGB Conc 35 g/dL (31-36); Mean Corpuscular Hemoglobin 28 pg (27-31); Mean Corpuscular Volume 82 fL (80-94); Platelet Count 549 10^3/uL (150-450); Red Blood Count 4.01 10^6 /uL (4.18-5.48); Red Cell Distribution Width 14 % (10-15); White Blood Count 17.2 10^3/uL (3.5-10.8)
[2021-06-09 07:40] LABS: ABS Basophils 0.1 10^3/ul (0-0.2); ABS Eosinophils 0.1 10^3/ul (0-0.6); ABS Lymphocytes 1.6 10^3/ul (1.0-4.8); ABS Monocytes 1.6 10^3/ul (0-0.8); ABS Neutrophils 13.8 10^3/ul (1.5-7.7); Eosinophil % 0.5 %; Lymphocyte % 9.4 %
[2021-06-09 07:41] LABS: Calcium 8.6 mg/dL (8.6-10.3); EGFR African American 194.1 (>60); EGFR Non-African American 160.4 (>60); Potassium 4.2 mmol/L (3.5-5.0)
[2021-06-09 07:46] LABS: Vancomycin Trough 20.2 mcg/mL
[2021-06-09] MEDS: Insulin GLARGINE 100 un/ml 10 ml VIAL SUBCUT SCH (07:53)
[2021-06-09 09:01] LABS: Hematocrit 33 % (42-52); Mean Corpuscular HGB Conc 34 g/dL (31-36); Mean Corpuscular Hemoglobin 28 pg (27-31); Mean Corpuscular Volume 83 fL (80-94); Mean Platelet Volume 5.6 fL (7.4-10.4); Platelet Count 558 10^3/uL (150-450); Red Blood Count 3.93 10^6 /uL (4.18-5.48); Red Cell Distribution Width 14 % (10-15); White Blood Count 18.1 10^3/uL (3.5-10.8)
[2021-06-09 09:06] LABS: ABS Basophils 0.1 10^3/ul (0-0.2); ABS Eosinophils 0.1 10^3/ul (0-0.6); ABS Lymphocytes 1.8 10^3/ul (1.0-4.8); ABS Monocytes 1.6 10^3/ul (0-0.8); ABS Neutrophils 14.6 10^3/ul (1.5-7.7); Eosinophil % 0.3 %; Lymphocyte % 9.8 %
[2021-06-09 09:13] LABS: Activated Partial Thrombo Time 31.3 seconds (26.0-38.0); INR 1.55 (0.86-1.15)
[2021-06-09 09:17] LABS: EGFR African American 182.4 (>60); EGFR Non-African American 150.7 (>60)
[2021-06-09 09:21] LABS: CRP High Sensitivity 93.9 mg/L (<2.00)
[2021-06-09] MEDS ORDERED: Enoxaparin 40 MG/0.4 ML SYR SUBCUT SCH (12:00)
[2021-06-09] MEDS ORDERED: Vancomycin Trough Check NOTE FOLLOW UP ONE (14:00)
[2021-06-09] MEDS: Heparin 5000 UNITS/ML 1 mL VIAL SUBCUT SCH ×2 (14:20→22:26)
[2021-06-10] MEDS: CEFEPIME 2 GM in Dextrose 50 mL IV SCH ×2 (01:09→12:23)
[2021-06-10] MEDS: Vancomycin 1,250 MG in NS 0.9% 250 ml 250 ML IVPB SCH ×3 (05:43→22:37)
[2021-06-10] MEDS: Heparin 5000 UNITS/ML 1 mL VIAL SUBCUT SCH ×3 (05:43→22:37)
[2021-06-10] MEDS ORDERED: Insulin GLARGINE 100 un/ml 10 ml VIAL SUBCUT SCH (09:00)
[2021-06-11] MEDS: CEFEPIME 2 GM in Dextrose 50 mL IV SCH ×2 (00:43→11:18)
[2021-06-11] MEDS: Vancomycin 1,250 MG in NS 0.9% 250 ml 250 ML IVPB SCH ×3 (05:53→23:44)
[2021-06-11 06:17] LABS: EGFR African American 178.7 (>60); EGFR Non-African American 147.7 (>60); Potassium 4.4 mmol/L (3.5-5.0)
[2021-06-11 07:21] LABS: ABS Basophils 0.1 10^3/ul (0-0.2); ABS Eosinophils 0.3 10^3/ul (0-0.6); ABS Lymphocytes 2.1 10^3/ul (1.0-4.8); ABS Monocytes 1.2 10^3/ul (0-0.8); ABS Neutrophils 9.2 10^3/ul (1.5-7.7); Hematocrit 30 % (42-52); Hemoglobin 10.5 g/dL (14.0-18.0); Lymphocyte % 16.3 %; Mean Corpuscular HGB Conc 35 g/dL (31-36); Mean Corpuscular Hemoglobin 28 pg (27-31); Mean Corpuscular Volume 82 fL (80-94); Mean Platelet Volume 5.6 fL (7.4-10.4); Platelet Count 527 10^3/uL (150-450); Red Blood Count 3.71 10^6 /uL (4.18-5.48); Red Cell Distribution Width 14 % (10-15); White Blood Count 12.8 10^3/uL (3.5-10.8)
[2021-06-11] MEDS ORDERED: Insulin GLARGINE 100 un/ml 10 ml VIAL SUBCUT SCH (09:00)
[2021-06-11] MEDS ORDERED: Iodixanol 320 (CONTRAST) 100 ML SDV ONE ×2 (11:34→13:32)
[2021-06-11] MEDS ORDERED: Lidocaine 1% VIAL 10 MG/ML VIAL ONE (11:34)
[2021-06-11] MEDS ORDERED: Heparin 2 UNITS/ML IVPREMIX 3,000 UNIT/1,500 ML BAG IV ONE (11:34)
[2021-06-11] MEDS ORDERED: fentaNYL 100 mcg/2 ml 50 MCG/ML VIAL ONE ×2 (12:10→14:08)
[2021-06-11] MEDS ORDERED: Midazolam 5 mg/5 ml VIAL 1 mg/ml 5 ml VIAL (5 mg) ONE (12:10)
[2021-06-11] MEDS ORDERED: Heparin 1,000 UNIT/ML 10 ml (10,000 UNITS) CATHLAB/DIALYSIS ONE ×2 (12:11→14:45)
[2021-06-11] MEDS ORDERED: Naloxone 0.4 mg VIAL 0.4 mg/ml 1 ml VIAL ONE (12:56)
[2021-06-11] MEDS ORDERED: Flumazenil 0.5 mg/5 ml 0.1 MG/ML 5 ml VIAL ONE (12:56)
[2021-06-11] MEDS ORDERED: Vancomycin Trough Check NOTE FOLLOW UP ONE (14:00)
[2021-06-11] MEDS ORDERED: nitroGLYCERIN DRIP 25,000 MCG/250 ML BTL ONE (14:15)
[2021-06-11] MEDS ORDERED: Enoxaparin 40 MG/0.4 ML SYR SUBCUT SCH (21:00)
[2021-06-12] MEDS: CEFEPIME 2 GM in Dextrose 50 mL IV SCH ×2 (01:59→13:18)
[2021-06-12] MEDS ORDERED: Vancomycin Trough Check NOTE FOLLOW UP ONE (06:00)
[2021-06-12 06:52] LABS: ABS Basophils 0.1 10^3/ul (0-0.2); ABS Eosinophils 0.2 10^3/ul (0-0.6); ABS Lymphocytes 1.7 10^3/ul (1.0-4.8); ABS Monocytes 1.1 10^3/ul (0-0.8); ABS Neutrophils 7.8 10^3/ul (1.5-7.7); Eosinophil % 1.7 %; Hematocrit 32 % (42-52); Hemoglobin 10.8 g/dL (14.0-18.0); Lymphocyte % 15.8 %; Mean Corpuscular HGB Conc 34 g/dL (31-36); Mean Corpuscular Hemoglobin 28 pg (27-31); Mean Corpuscular Volume 82 fL (80-94); Mean Platelet Volume 5.9 fL (7.4-10.4); Platelet Count 522 10^3/uL (150-450); Red Blood Count 3.82 10^6 /uL (4.18-5.48); Red Cell Distribution Width 14 % (10-15); White Blood Count 10.9 10^3/uL (3.5-10.8)
[2021-06-12 07:07] LABS: C Reactive Protein 102.61 mg/L (<8.01)
[2021-06-12 07:13] LABS: Vancomycin Trough 19.8 mcg/mL
[2021-06-12] MEDS: Insulin GLARGINE 100 un/ml 10 ml VIAL SUBCUT SCH (07:50)
[2021-06-12] MEDS: Vancomycin 1,250 MG in NS 0.9% 250 ml 250 ML IVPB SCH (07:52)
[2021-06-12] MEDS ORDERED: NS 0.9% 1000 ml BAG 1,000 ML IV SCH (11:00)
[2021-06-12] MEDS ORDERED: Iodixanol 320 (CONTRAST) 100 ML SDV ONE ×4 (13:24→16:07)
[2021-06-12] MEDS ORDERED: Lidocaine 1% VIAL 10 MG/ML VIAL ONE (13:24)
[2021-06-12] MEDS ORDERED: Heparin 2 UNITS/ML IVPREMIX 3,000 UNIT/1,500 ML BAG IV ONE (13:24)
[2021-06-12] MEDS ORDERED: Alteplase 10 mg/10 mL (for intra-op IR use only, onetime) ONE (14:00)
[2021-06-12] MEDS ORDERED: Midazolam 5 mg/5 ml VIAL 1 mg/ml 5 ml VIAL (5 mg) ONE (14:05)
[2021-06-12] MEDS ORDERED: fentaNYL 250 mcg/5 ml 50 MCG/ML 5 ml VIAL (250 MCG) ONE (14:06)
[2021-06-12] MEDS ORDERED: nitroGLYCERIN DRIP 25,000 MCG/250 ML BTL ONE (14:41)
[2021-06-12] MEDS ORDERED: Heparin 1,000 UNIT/ML 10 ml (10,000 UNITS) CATHLAB/DIALYSIS ONE ×2 (14:41→15:49)
[2021-06-12] MEDS ORDERED: Heparin 2 UNITS/ML IVPREMIX 1,000 UNIT/500 ML BAG IV ONE ×2 (15:49→17:20)
[2021-06-12 20:34] LABS: ABS Basophils 0.1 10^3/ul (0-0.2); ABS Eosinophils 0.2 10^3/ul (0-0.6); ABS Lymphocytes 2.3 10^3/ul (1.0-4.8); ABS Monocytes 1.1 10^3/ul (0-0.8); ABS Neutrophils 8.9 10^3/ul (1.5-7.7); Eosinophil % 1.3 %; Hematocrit 31 % (42-52); Hemoglobin 10.1 g/dL (14.0-18.0); Lymphocyte % 18.5 %; Mean Corpuscular HGB Conc 33 g/dL (31-36); Mean Corpuscular Hemoglobin 27 pg (27-31); Mean Corpuscular Volume 84 fL (80-94); Mean Platelet Volume 5.6 fL (7.4-10.4); Nucleated Red Blood Cells % 0.1; Platelet Count 507 10^3/uL (150-450); Red Blood Count 3.68 10^6 /uL (4.18-5.48); Red Cell Distribution Width 14 % (10-15); White Blood Count 12.6 10^3/uL (3.5-10.8)
[2021-06-12 20:51] LABS: EGFR African American 194.1 (>60); EGFR Non-African American 160.4 (>60)
[2021-06-12] MEDS: Heparin DRIP 25,000 UNITS BAG 25,000 UNITS/500 ML BAG IV SCH (21:57)
[2021-06-12] MEDS: Heparin 5000 UNITS/ML 1 mL VIAL IV SCH (21:59)
[2021-06-12] MEDS: Morphine 2 MG/ML SYRINGE IV PRN (22:47)
[2021-06-13] MEDS: CEFEPIME 2 GM in Dextrose 50 mL IV SCH ×3 (00:28→23:15)
[2021-06-13] MEDS: Morphine 2 MG/ML SYRINGE IV PRN ×4 (02:15→15:11)
[2021-06-13 04:24] LABS: ABS Basophils 0.1 10^3/ul (0-0.2); ABS Eosinophils 0.2 10^3/ul (0-0.6); ABS Lymphocytes 2.6 10^3/ul (1.0-4.8); ABS Monocytes 1.2 10^3/ul (0-0.8); ABS Neutrophils 8.3 10^3/ul (1.5-7.7); Eosinophil % 1.5 %; Hematocrit 29 % (42-52); Lymphocyte % 20.8 %; Mean Corpuscular HGB Conc 34 g/dL (31-36); Mean Corpuscular Hemoglobin 28 pg (27-31); Mean Corpuscular Volume 82 fL (80-94); Mean Platelet Volume 5.6 fL (7.4-10.4); Platelet Count 474 10^3/uL (150-450); Red Blood Count 3.58 10^6 /uL (4.18-5.48); Red Cell Distribution Width 14 % (10-15); White Blood Count 12.4 10^3/uL (3.5-10.8)
[2021-06-13] MEDS: Insulin GLARGINE 100 un/ml 10 ml VIAL SUBCUT SCH (08:43)
[2021-06-13] MEDS: Heparin DRIP 25,000 UNITS BAG 25,000 UNITS/500 ML BAG IV SCH (13:33)
[2021-06-13] MEDS: Heparin 5000 UNITS/ML 1 mL VIAL IV SCH (17:16)
[2021-06-13] MEDS: oxyCODONE/Acetamin 5/325 mg TAB PO PRN (22:25)
[2021-06-14] MEDS: Heparin DRIP 25,000 UNITS BAG 25,000 UNITS/500 ML BAG IV SCH ×2 (03:22→17:24)
[2021-06-14 06:52] LABS: ABS Basophils 0.1 10^3/ul (0-0.2); ABS Eosinophils 0.2 10^3/ul (0-0.6); ABS Lymphocytes 2.7 10^3/ul (1.0-4.8); ABS Monocytes 1.4 10^3/ul (0-0.8); ABS Neutrophils 9.1 10^3/ul (1.5-7.7); Eosinophil % 1.4 %; Hematocrit 28 % (42-52); Hemoglobin 9.4 g/dL (14.0-18.0); Lymphocyte % 20.3 %; Mean Corpuscular HGB Conc 34 g/dL (31-36); Mean Corpuscular Hemoglobin 28 pg (27-31); Mean Corpuscular Volume 82 fL (80-94); Mean Platelet Volume 5.7 fL (7.4-10.4); Platelet Count 445 10^3/uL (150-450); Red Blood Count 3.37 10^6 /uL (4.18-5.48); Red Cell Distribution Width 14 % (10-15); White Blood Count 13.4 10^3/uL (3.5-10.8)
[2021-06-14 07:18] LABS: C Reactive Protein 122.42 mg/L (<8.01); Calcium 8.7 mg/dL (8.6-10.3); EGFR African American 178.7 (>60); EGFR Non-African American 147.7 (>60); Potassium 4.2 mmol/L (3.5-5.0)
[2021-06-14] MEDS: Insulin GLARGINE 100 un/ml 10 ml VIAL SUBCUT SCH (08:53)
[2021-06-14] MEDS: oxyCODONE/Acetamin 5/325 mg TAB PO PRN ×3 (08:58→19:29)
[2021-06-14] MEDS ORDERED: NS 0.9% 1000 ml BAG 1,000 ML IV ONE (11:31)
[2021-06-14] MEDS: CEFEPIME 2 GM in Dextrose 50 mL IV SCH ×2 (12:36→23:44)
[2021-06-14] MEDS: Morphine 2 MG/ML SYRINGE IV PRN ×2 (17:22→23:44)
[2021-06-15 06:20] LABS: ABS Basophils 0.1 10^3/ul (0-0.2); ABS Eosinophils 0.2 10^3/ul (0-0.6); ABS Lymphocytes 2.5 10^3/ul (1.0-4.8); ABS Monocytes 1.2 10^3/ul (0-0.8); ABS Neutrophils 9.5 10^3/ul (1.5-7.7); Eosinophil % 1.6 %; Hematocrit 26 % (42-52); Hemoglobin 8.9 g/dL (14.0-18.0); Lymphocyte % 18.3 %; Mean Corpuscular HGB Conc 34 g/dL (31-36); Mean Corpuscular Hemoglobin 28 pg (27-31); Mean Corpuscular Volume 83 fL (80-94); Mean Platelet Volume 5.8 fL (7.4-10.4); Platelet Count 433 10^3/uL (150-450); Red Blood Count 3.16 10^6 /uL (4.18-5.48); Red Cell Distribution Width 14 % (10-15); White Blood Count 13.4 10^3/uL (3.5-10.8)
[2021-06-15] MEDS: Insulin GLARGINE 100 un/ml 10 ml VIAL SUBCUT SCH (08:41)
[2021-06-15] MEDS: oxyCODONE/Acetamin 5/325 mg TAB PO PRN ×3 (08:59→20:58)
[2021-06-15] MEDS: Heparin DRIP 25,000 UNITS BAG 25,000 UNITS/500 ML BAG IV SCH ×2 (08:59→22:20)
[2021-06-15] MEDS: CEFEPIME 2 GM in Dextrose 50 mL IV SCH ×2 (11:48→23:45)
[2021-06-15] MEDS: Morphine 2 MG/ML SYRINGE IV PRN (23:52)
[2021-06-16] MEDS ORDERED: NS 0.9% 1000 ml BAG 1,000 ML IV SCH (06:00)
[2021-06-16 06:12] LABS: ABS Basophils 0.1 10^3/ul (0-0.2); ABS Eosinophils 0.2 10^3/ul (0-0.6); ABS Lymphocytes 2.5 10^3/ul (1.0-4.8); ABS Monocytes 1.1 10^3/ul (0-0.8); ABS Neutrophils 8.8 10^3/ul (1.5-7.7); Eosinophil % 1.4 %; Hematocrit 28 % (42-52); Hemoglobin 9.5 g/dL (14.0-18.0); Lymphocyte % 19.7 %; Mean Corpuscular HGB Conc 34 g/dL (31-36); Mean Corpuscular Hemoglobin 28 pg (27-31); Mean Corpuscular Volume 82 fL (80-94); Mean Platelet Volume 6.2 fL (7.4-10.4); Platelet Count 470 10^3/uL (150-450); Red Blood Count 3.38 10^6 /uL (4.18-5.48); Red Cell Distribution Width 14 % (10-15); White Blood Count 12.6 10^3/uL (3.5-10.8)
[2021-06-16 06:29] LABS: Calcium 8.6 mg/dL (8.6-10.3); EGFR African American 207.3 (>60); EGFR Non-African American 171.3 (>60); Potassium 4.1 mmol/L (3.5-5.0)
[2021-06-16] MEDS: Morphine 2 MG/ML SYRINGE IV PRN ×2 (09:43→17:42)
[2021-06-16] MEDS: Insulin GLARGINE 100 un/ml 10 ml VIAL SUBCUT SCH (09:45)
[2021-06-16] MEDS: CEFEPIME 2 GM in Dextrose 50 mL IV SCH (12:04)
[2021-06-16] MEDS ORDERED: Lidocaine 1% VIAL 10 MG/ML VIAL ONE (13:44)
[2021-06-16] MEDS ORDERED: Heparin 2 UNITS/ML IVPREMIX 3,000 UNIT/1,500 ML BAG IV ONE (13:44)
[2021-06-16] MEDS ORDERED: Iodixanol 320 (CONTRAST) 100 ML SDV ONE ×2 (13:44→16:30)
[2021-06-16] MEDS ORDERED: Midazolam 5 mg/5 ml VIAL 1 mg/ml 5 ml VIAL (5 mg) ONE (14:17)
[2021-06-16] MEDS ORDERED: fentaNYL 100 mcg/2 ml 50 MCG/ML VIAL ONE ×2 (14:17→16:06)
[2021-06-16] MEDS ORDERED: nitroGLYCERIN DRIP 25,000 MCG/250 ML BTL ONE (14:41)
[2021-06-16] MEDS ORDERED: Heparin DRIP 25,000 UNITS BAG 25,000 UNITS/500 ML BAG ONE (14:45)
[2021-06-16] MEDS ORDERED: Heparin 1,000 UNIT/ML 10 ml (10,000 UNITS) CATHLAB/DIALYSIS ONE (14:52)
[2021-06-16] MEDS ORDERED: Heparin 2 UNITS/ML IVPREMIX 1,000 UNIT/500 ML BAG IV ONE (16:30)
[2021-06-16] MEDS ORDERED: oxyCODONE/Acetamin 5/325 mg TAB ONE (17:40)
[2021-06-16] MEDS ORDERED: Morphine 4 MG/ML VIAL (1 ml) ONE (17:40)
[2021-06-16] MEDS: oxyCODONE/Acetamin 5/325 mg TAB PO PRN (17:41)
[2021-06-17] MEDS: CEFEPIME 2 GM in Dextrose 50 mL IV SCH ×2 (00:10→12:36)
[2021-06-17] MEDS: oxyCODONE/Acetamin 5/325 mg TAB PO PRN ×6 (00:12→21:00)
[2021-06-17] MEDS: Heparin DRIP 25,000 UNITS BAG 25,000 UNITS/500 ML BAG IV SCH (04:52)
[2021-06-17 07:50] LABS: ABS Basophils 0.1 10^3/ul (0-0.2); ABS Eosinophils 0.1 10^3/ul (0-0.6); ABS Lymphocytes 2.7 10^3/ul (1.0-4.8); ABS Neutrophils 6.6 10^3/ul (1.5-7.7); Eosinophil % 1.1 %; Hematocrit 26 % (42-52); Hemoglobin 8.8 g/dL (14.0-18.0); Mean Corpuscular HGB Conc 34 g/dL (31-36); Mean Corpuscular Hemoglobin 28 pg (27-31); Mean Corpuscular Volume 83 fL (80-94); Mean Platelet Volume 5.7 fL (7.4-10.4); Platelet Count 442 10^3/uL (150-450); Red Blood Count 3.11 10^6 /uL (4.18-5.48); Red Cell Distribution Width 14 % (10-15); White Blood Count 10.5 10^3/uL (3.5-10.8)
[2021-06-17] MEDS: Insulin GLARGINE 100 un/ml 10 ml VIAL SUBCUT SCH (09:06)
[2021-06-17] MEDS: Heparin 5000 UNITS/ML 1 mL VIAL IV SCH (14:10)
[2021-06-18] MEDS: CEFEPIME 2 GM in Dextrose 50 mL IV SCH ×2 (00:54→12:32)
[2021-06-18 06:06] LABS: ABS Basophils 0.1 10^3/ul (0-0.2); ABS Eosinophils 0.1 10^3/ul (0-0.6); ABS Lymphocytes 1.9 10^3/ul (1.0-4.8); ABS Monocytes 1.2 10^3/ul (0-0.8); ABS Neutrophils 7.7 10^3/ul (1.5-7.7); Hematocrit 26 % (42-52); Hemoglobin 8.8 g/dL (14.0-18.0); Lymphocyte % 17.2 %; Mean Corpuscular HGB Conc 34 g/dL (31-36); Mean Corpuscular Hemoglobin 28 pg (27-31); Mean Corpuscular Volume 83 fL (80-94); Mean Platelet Volume 5.7 fL (7.4-10.4); Platelet Count 462 10^3/uL (150-450); Red Blood Count 3.15 10^6 /uL (4.18-5.48); Red Cell Distribution Width 15 % (10-15)
[2021-06-18 06:13] LABS: INR 1.49 (0.86-1.15)
[2021-06-18 06:22] LABS: Calcium 8.6 mg/dL (8.6-10.3); EGFR African American 212.1 (>60); EGFR Non-African American 175.3 (>60); Potassium 4.2 mmol/L (3.5-5.0)
[2021-06-18 07:21] LABS: C Reactive Protein 90.87 mg/L (<8.01)
[2021-06-18] MEDS: oxyCODONE/Acetamin 5/325 mg TAB PO PRN ×2 (08:47→17:58)
[2021-06-18] MEDS: Insulin GLARGINE 100 un/ml 10 ml VIAL SUBCUT SCH (08:52)
[2021-06-18] MEDS: Enoxaparin 40 MG/0.4 ML SYR SUBCUT SCH (10:05)
[2021-06-19] MEDS: CEFEPIME 2 GM in Dextrose 50 mL IV SCH ×2 (00:18→11:49)
[2021-06-19] MEDS: oxyCODONE/Acetamin 5/325 mg TAB PO PRN ×2 (06:02→11:55)
[2021-06-19 06:20] LABS: ABS Basophils 0.1 10^3/ul (0-0.2); ABS Eosinophils 0.1 10^3/ul (0-0.6); ABS Lymphocytes 2.2 10^3/ul (1.0-4.8); ABS Monocytes 1.4 10^3/ul (0-0.8); ABS Neutrophils 8.6 10^3/ul (1.5-7.7); Eosinophil % 0.9 %; Hematocrit 28 % (42-52); Hemoglobin 9.4 g/dL (14.0-18.0); Mean Corpuscular HGB Conc 33 g/dL (31-36); Mean Corpuscular Hemoglobin 28 pg (27-31); Mean Corpuscular Volume 84 fL (80-94); Mean Platelet Volume 5.5 fL (7.4-10.4); Platelet Count 494 10^3/uL (150-450); Red Blood Count 3.38 10^6 /uL (4.18-5.48); Red Cell Distribution Width 15 % (10-15); White Blood Count 12.4 10^3/uL (3.5-10.8)
[2021-06-19] MEDS: Enoxaparin 40 MG/0.4 ML SYR SUBCUT SCH (08:45)
[2021-06-19] MEDS: Insulin GLARGINE 100 un/ml 10 ml VIAL SUBCUT SCH (08:47)
[2021-06-19 12:18] VITALS: BP 110/72
== END 2021-06-19 13:45 | DRG 314 ==
LOC: SUATTDRO 15:32 → SSU 15:32
PROVIDERS: ADMIT Internal Medicine; ATTEND Internal Medicine